=== PATIENT | male | born 1960 | race Caucasian/White ===

== ENCOUNTER 2021-10-17 19:04 | Inpatient (IN) | payer OTHER ==
[~2021-10-17 19:04] MED LIST: Iopamidol 300 61% 100 ML VIAL FS ONE; Iopamidol 300 61% 50 ML VIAL FS ONE
[2021-10-17] MEDS ORDERED: Lidocaine 1% 20 ML MDV ONE (19:06)
[2021-10-17] MEDS ORDERED: Heparin 10,000 UNITS/ 10 ML VIAL ONE (19:06)
[2021-10-17] MEDS ORDERED: Nitroglycerin 50 MG/250 ML BOT 0 ML ONE (19:06)
[2021-10-17] MEDS ORDERED: Verapamil 5 MG/2 ML VIAL ONE (19:07)
[2021-10-17] MEDS ORDERED: Adenosine 6 MG/2 ML VIAL ONE (19:08)
[2021-10-17] MEDS ORDERED: Fentanyl 100 MCG/2 ML VIAL ONE (19:08)
[2021-10-17] MEDS ORDERED: Bivalirudin 250 MG VIAL ONE ×2 (19:08→20:17)
[2021-10-17] MEDS ORDERED: Sodium Chloride 0.9% 1,000 ML ONE (19:08)
[2021-10-17] MEDS ORDERED: Midazolam HCl 2 mg/2 ml Vial ONE ×2 (19:08→20:31)
[2021-10-17] MEDS ORDERED: Heparin 25,000 units/D5W 500 ML ONE (19:15)
[2021-10-17] MEDS ORDERED: Ondansetron PF 4 MG/2 ML Vial ONE (19:42)
[2021-10-17] MEDS ORDERED: Atropine Sulfate 0.4 mg/1 ml Vial ONE (19:43)
[2021-10-17 19:46] LABS: #Eosinphils 0.1 10x3/uL (0.0-0.5); #Monocytes 0.4 10x3/uL (0.0-1.1); #Neutrophils 10.4 10x3/uL (1.5-8.4); %Basophils 0.3 % (0.0-2.0); %Eosinophils 0.8 % (0.0-6.0); %Lymphocytes 7.2 % (18.0-47.0); %Monocytes 3.6 % (0.0-10.0); %Neutrophils 87.7 % (40.0-75.0); Hemoglobin 11.2 g/dL (13.5-17.5); Mean Corpuscular HGB CONC 32.6 g/dL (32.0-36.0); Mean Corpuscular Hemoglobin 27.5 pg (27.0-33.0); Mean Corpuscular Volume 84.3 fl (81.2-95.1); Mean Platelet Volume 10.7 fl (7.4-10.4); Platelet Count 314 10x3/uL (150-450); Red Blood Cell (RBC) Count 4.08 10x6/uL (4.32-5.72); White Blood Cell (WBC) Count 11.8 10x3/uL (3.5-10.5)
[2021-10-17] MEDS ORDERED: TICAGRELOR 90 MG TABLET ONE (19:59)
[2021-10-17] MEDS ORDERED: Aspirin 325 MG TAB ONE (19:59)
[2021-10-17 20:01] LABS: INR-International Normal Ratio 1.1; Prothrombin Time 12.2 sec (9.5-12.1)
[2021-10-17 20:05] LABS: ALT (SGPT) 10 U/L (8-55); AST (SGOT) 12 U/L (5-34); Albumin 3.5 g/dL (3.4-4.8); Alkaline Phosphatase 54 U/L (40-110); Anion Gap 15 mmol/L (10-20); BUN (Urea Nitrogen) 15 mg/dL (8.4-25.7); Bilirubin, Total 0.4 mg/dL (0.2-1.2); Calc. Creatinine Clearance 0 mL/min (70-130); Calcium 8.9 mg/dL (7.8-10.44); Carbon Dioxide 21 mmol/L (23-31); Chloride 104 mmol/L (98-107); Estimated GFR 53; Globulin 4.1 g/dL (2.4-3.5); Glucose 173 mg/dL (80-115); Potassium 3.2 mmol/L (3.5-5.1); Protein, Total 7.6 g/dL (5.8-8.1); Sodium 137 mmol/L (136-145)
[2021-10-17 20:10] LABS: SARS-CoV-2 NAA Rapid Test Not Detected (NotDetected)
[2021-10-17 20:28] LABS: CKMB 2.3 ng/mL (0-6.6)
[2021-10-17] MEDS ORDERED: Labetalol HCl 100 MG/20 ML VIAL ONE (21:04)
[2021-10-17] MEDS ORDERED: Morphine 4 MG/ML VIAL SLOW IVP PRN (21:06)
[2021-10-17] MEDS ORDERED: Fentanyl 100 MCG/2 ML VIAL SLOW IVP PRN (21:10)
[2021-10-17] MEDS ORDERED: Atorvastatin Calcium 40 MG TAB PO SCH (22:30)
[2021-10-17] MEDS ORDERED: Carvedilol 6.25 MG TAB PO SCH (23:45)
[2021-10-17] MEDS: Labetalol HCl 100 MG/20 ML VIAL SLOW IVP PRN (23:45)
[2021-10-18] MEDS: Labetalol HCl 100 MG/20 ML VIAL SLOW IVP PRN ×4 (01:27→21:35)
[2021-10-18 04:26] LABS: #Monocytes 0.6 10x3/uL (0.0-1.1); #Neutrophils 11.8 10x3/uL (1.5-8.4); %Basophils 0.2 % (0.0-2.0); %Eosinophils 0.2 % (0.0-6.0); %Lymphocytes 5.1 % (18.0-47.0); %Monocytes 4.7 % (0.0-10.0); %Neutrophils 89.3 % (40.0-75.0); Hemoglobin 10.1 g/dL (13.5-17.5); Mean Corpuscular HGB CONC 31.8 g/dL (32.0-36.0); Mean Corpuscular Hemoglobin 27.2 pg (27.0-33.0); Mean Corpuscular Volume 85.5 fl (81.2-95.1); Mean Platelet Volume 11.4 fl (7.4-10.4); Platelet Count 339 10x3/uL (150-450); Red Blood Cell (RBC) Count 3.72 10x6/uL (4.32-5.72); White Blood Cell (WBC) Count 13.2 10x3/uL (3.5-10.5)
[2021-10-18 04:36] LABS: ALT (SGPT) 16 U/L (8-55); AST (SGOT) 71 U/L (5-34); Albumin 3.3 g/dL (3.4-4.8); Alkaline Phosphatase 48 U/L (40-110); Anion Gap 13 mmol/L (10-20); BUN (Urea Nitrogen) 15 mg/dL (8.4-25.7); Bilirubin, Total 0.4 mg/dL (0.2-1.2); Calc. Creatinine Clearance 93 mL/min (70-130); Calcium 8.7 mg/dL (7.8-10.44); Carbon Dioxide 26 mmol/L (23-31); Chloride 103 mmol/L (98-107); Estimated GFR 51; Globulin 3.7 g/dL (2.4-3.5); Glucose 172 mg/dL (80-115); Potassium 3.9 mmol/L (3.5-5.1); Sodium 138 mmol/L (136-145)
[2021-10-18] MEDS ORDERED: Carvedilol 6.25 MG TAB PO SCH (08:00)
[2021-10-18] MEDS: TICAGRELOR 90 MG TABLET PO SCH ×2 (08:08→20:10)
[2021-10-18] MEDS: Aspirin Chewable 81 MG TAB PO SCH (08:09)
[2021-10-18] MEDS ORDERED: Lisinopril 5 MG TAB PO SCH (09:00)
[2021-10-18] MEDS ORDERED: Furosemide 20 MG/2 ML VIAL SLOW IVP SCH (10:30)
[2021-10-18] MEDS ORDERED: Spironolactone 25 MG TAB PO SCH (10:30)
[2021-10-18 11:15] LABS: Troponin I 7.151 ng/mL (< 0.028)
[2021-10-18] MEDS: Carvedilol 12.5 MG TAB PO SCH (16:32)
[2021-10-18] MEDS: Atorvastatin Calcium 40 MG TAB PO SCH (20:10)
[2021-10-19 04:26] LABS: Anion Gap 15 mmol/L (10-20); BUN (Urea Nitrogen) 16 mg/dL (8.4-25.7); Calc. Creatinine Clearance 102 mL/min (70-130); Calcium 8.8 mg/dL (7.8-10.44); Carbon Dioxide 25 mmol/L (23-31); Cardiac Risk 3.9 (Less than 4.5); Chloride 102 mmol/L (98-107); Cholesterol 85 mg/dl (< 200 Desired); Estimated GFR 57; Glucose 144 mg/dL (80-115); HDL Cholesterol 22 mg/dL (>60 Neg Risk); LDL Cholesterol, Calculated 45 mg/dL; Potassium 3.7 mmol/L (3.5-5.1); Sodium 138 mmol/L (136-145); Triglycerides 91 mg/dL (Less than 150)
[2021-10-19 06:32] VITALS: BMI 36.1
[2021-10-19] MEDS: TICAGRELOR 90 MG TABLET PO SCH ×2 (07:58→20:21)
[2021-10-19] MEDS: Aspirin Chewable 81 MG TAB PO SCH (07:59)
[2021-10-19] MEDS: Carvedilol 12.5 MG TAB PO SCH (07:59)
[2021-10-19] MEDS: Furosemide 40 MG TAB PO SCH (07:59)
[2021-10-19] MEDS ORDERED: Lisinopril 20 MG TAB PO SCH (09:00)
[2021-10-19] MEDS ORDERED: Spironolactone 25 MG TAB PO SCH (09:00)
[2021-10-19] MEDS: Carvedilol 25 MG TAB PO SCH (17:05)
[2021-10-19] MEDS: Atorvastatin Calcium 40 MG TAB PO SCH (20:21)
[2021-10-20 04:54] LABS: Anion Gap 13 mmol/L (10-20); BUN (Urea Nitrogen) 23 mg/dL (8.4-25.7); Calc. Creatinine Clearance 83 mL/min (70-130); Calcium 8.6 mg/dL (7.8-10.44); Carbon Dioxide 26 mmol/L (23-31); Chloride 102 mmol/L (98-107); Estimated GFR 46; Glucose 122 mg/dL (80-115); Potassium 3.4 mmol/L (3.5-5.1); Sodium 138 mmol/L (136-145)
[2021-10-20 04:58] LABS: Hemoglobin 9.8 g/dL (13.5-17.5); Mean Corpuscular HGB CONC 31.7 g/dL (32.0-36.0); Mean Corpuscular Hemoglobin 27.1 pg (27.0-33.0); Mean Corpuscular Volume 85.4 fl (81.2-95.1); Mean Platelet Volume 11.6 fl (7.4-10.4); Platelet Count 310 10x3/uL (150-450); RBC Distribution Width 14.3 % (11.5-14.5); Red Blood Cell (RBC) Count 3.62 10x6/uL (4.32-5.72); White Blood Cell (WBC) Count 12.8 10x3/uL (3.5-10.5)
[2021-10-20 08:07] VITALS: TEMP 98.2
[2021-10-20] MEDS: Carvedilol 25 MG TAB PO SCH (08:33)
[2021-10-20] MEDS: TICAGRELOR 90 MG TABLET PO SCH (08:33)
[2021-10-20] MEDS: Aspirin Chewable 81 MG TAB PO SCH (08:33)
[2021-10-20] MEDS: Furosemide 40 MG TAB PO SCH (08:33)
[2021-10-20] MEDS ORDERED: Lisinopril 20 MG TAB PO SCH (09:00)
[2021-10-20] MEDS ORDERED: Spironolactone 25 MG TAB PO SCH (09:00)
[2021-10-20 11:42] VITALS: BP 108/69
== END 2021-10-20 14:50 | DRG 246 ==
LOC: CSHERS 19:04 → CSHICU 21:15
PROVIDERS: ADMIT Specialist; ATTEND Specialist
PROC: 027034Z Dilation of Coronary Artery, One Artery with Drug-eluting Intraluminal Device, Percutaneous Approach (ICD-10-PCS; principal; 2021-10-17)
PROC: 02713ZZ Dilation of Coronary Artery, Two Arteries, Percutaneous Approach (ICD-10-PCS; 2021-10-17)
PROC: 02C03ZZ Extirpation of Matter from Coronary Artery, One Artery, Percutaneous Approach (ICD-10-PCS; 2021-10-17)
PROC: 4A023N7 Measurement of Cardiac Sampling and Pressure, Left Heart, Percutaneous Approach (ICD-10-PCS; 2021-10-17)
PROC: B2111ZZ Fluoroscopy of Multiple Coronary Arteries using Low Osmolar Contrast (ICD-10-PCS; 2021-10-17)
PROC: B2151ZZ Fluoroscopy of Left Heart using Low Osmolar Contrast (ICD-10-PCS; 2021-10-17)
PROC: 06HY33Z Insertion of Infusion Device into Lower Vein, Percutaneous Approach (ICD-10-PCS; 2021-10-17)
DX: I97.190 Other postprocedural cardiac functional disturbances following cardiac surgery (principal); I21.A9 Other myocardial infarction type; T82.867A Thrombosis due to cardiac prosthetic devices, implants and grafts, initial encounter; I10 Essential (primary) hypertension; E78.5 Hyperlipidemia, unspecified; E78.00 Pure hypercholesterolemia, unspecified; I25.10 Atherosclerotic heart disease of native coronary artery without angina pectoris; I25.5 Ischemic cardiomyopathy; Y83.8 Other surgical procedures as the cause of abnormal reaction of the patient, or of later complication, without mention of misadventure at the time of the procedure; Z20.822 Contact with and (suspected) exposure to COVID-19; I25.2 Old myocardial infarction; Z95.5 Presence of coronary angioplasty implant and graft; Z82.49 Family history of ischemic heart disease and other diseases of the circulatory system
CPT/HCPCS: 36415; 36556; 71045; 80048; 80053; 80061; 82553; 83880; 84484; 85025; 85027; 85610; 85730; 92941; 92978; 93005; 93010; 93306; 93458; 94760; 99152; 99153; C1725; C1726; C1753; C1769; C1874; C1894; C9606; J0153; J0461; J0583; J1644; J1940; J2250; J2270; J2405; J3010; J7050; Q9967; U0002

== ENCOUNTER 2023-03-04 20:16 | Emergency (ER) | payer OTHER ==
[2023-03-04 21:23] LABS: #Basophils 0.1 10x3/uL (0.0-0.2); #Monocytes 0.5 10x3/uL (0.0-1.1); %Basophils 0.7 % (0.0-2.0); %Eosinophils 0.3 % (0.0-6.0); %Lymphocytes 8.9 % (18.0-47.0); %Monocytes 5.2 % (0.0-10.0); %Neutrophils 84.4 % (40.0-75.0); Hematocrit 33.9 % (38.8-50.0); Hemoglobin 10.6 g/dL (13.5-17.5); Mean Corpuscular HGB CONC 31.3 g/dL (32.0-36.0); Mean Corpuscular Volume 83.3 fl (81.2-95.1); Mean Platelet Volume 11.6 fl (7.4-10.4); Platelet Count 370 10x3/uL (150-450); RBC Distribution Width 15.6 % (11.5-14.5); Red Blood Cell (RBC) Count 4.07 10x6/uL (4.32-5.72); White Blood Cell (WBC) Count 9.4 10x3/uL (3.5-10.5)
[2023-03-04 21:36] LABS: ALT (SGPT) 367 U/L (8-55); AST (SGOT) 342 U/L (5-34); Albumin 3.7 g/dL (3.4-4.8); Alkaline Phosphatase 74 U/L (40-110); Anion Gap 19 mmol/L (10-20); BUN (Urea Nitrogen) 26 mg/dL (8.4-25.7); Bilirubin, Total 1.9 mg/dL (0.2-1.2); Calc. Creatinine Clearance 0 mL/min (70-130); Calcium 9.6 mg/dL (7.8-10.44); Carbon Dioxide 16 mmol/L (23-31); Chloride 106 mmol/L (98-107); Estimated GFR 33; Globulin 3.5 g/dL (2.4-3.5); Glucose 127 mg/dL (80-115); Potassium 3.9 mmol/L (3.5-5.1); Protein, Total 7.2 g/dL (5.8-8.1); Sodium 137 mmol/L (136-145)
[2023-03-04 21:38] LABS: Troponin I 0.036 ng/mL (< 0.028)
[2023-03-04] MEDS ORDERED: Furosemide 40 MG/4 ML VIAL ONE (22:17)
[2023-03-04] MEDS ORDERED: hydrALAZINE 20 MG/ML VIAL ONE (22:17)
[2023-03-04] MEDS ORDERED: Labetalol HCl 100 MG/20 ML VIAL ONE (23:36)
[2023-03-05 00:47] LABS: SARS-CoV-2 NAA Rapid Test Not Detected (NotDetected)
== END 2023-03-05 03:08 | disposition short-term general hospital (02) ==
LOC: EEVIPCON 20:16 → CSHERS 20:16
DX: R07.9 Chest pain, unspecified (principal); R06.00 Dyspnea, unspecified; E78.00 Pure hypercholesterolemia, unspecified; I10 Essential (primary) hypertension; Z79.899 Other long term (current) drug therapy; Z79.82 Long term (current) use of aspirin; Z20.822 Contact with and (suspected) exposure to COVID-19
CPT/HCPCS: 36415; 71045; 80053; 83880; 84484; 85025; 96374; 96375; J0360; J1940; U0002